=== PATIENT | female | born 1970 | race Caucasian/White ===

== ENCOUNTER 2020-01-25 14:27 | Outpatient (CLI) | payer OTHER, SELFPAY ==
--- NOTE | ~2020-01-25 | MM_ITS ---
EXAMINATION: MM screening michele BI w alayna HISTORY: Screening mammogram TECHNIQUE: Craniocaudal and mediolateral oblique 3-D tomosynthesis images were obtained and synthetic 2-D images were generated. CAD analysis was submitted and interpreted. COMPARISON: Comparison to multiple prior studies sequentially, with oldest reviewed study dated 10/09. BREAST PARENCHYMAL COMPOSITION: There are scattered areas of fibroglandular density. FINDINGS: There is no evidence of suspicious mass, calcification, or architectural distortion to sugg est malignancy in either breast. There has been no suspicious interval change. IMPRESSION: 1. No mammographic evidence of malignancy. 2. Recommend routine screening mammography in one year. BI-RADS Category 1: Negative Reviewed, dictated and finalized at location A.
== END 2020-01-25 14:28 | disposition home or self-care (01) ==
LOC: ANHIMG 14:35
PROVIDERS: PCP Family Medicine; Visit Provider Family Medicine
DX: Z12.31 Encounter for screening mammogram for malignant neoplasm of breast (principal)
CPT/HCPCS: 77063; 77067

== ENCOUNTER 2020-07-12 17:02 | Outpatient (CLI) | payer OTHER, SELFPAY ==
--- NOTE | ~2020-07-12 | XR_ITS ---
EXAMINATION: XR knee RT 3V DATE: 07/12/2020 17:22 INDICATION: Medial right knee pain TECHNIQUE: Anteroposterior, oblique and crosstable lateral views of the right knee were obtained COMPARISON: None. FINDINGS: Alignment is normal. No fracture. Joint spaces appear normal. Tiny marginal osteophyte at the upper pole of the patella consistent with at least minimal osteoarthritis. No joint effusion/layering lipoh emarthrosis. Soft tissues are unremarkable. IMPRESSION: 1. Minimal right patellofemoral osteoarthritis. Reviewed, dictated and finalized at location A.
== END 2020-07-12 17:03 | disposition home or self-care (01) ==
PROVIDERS: PCP Family Medicine; Visit Provider Family Medicine
DX: M25.569 Pain in unspecified knee (principal)
CPT/HCPCS: 73562

== ENCOUNTER 2020-09-08 07:06 | Outpatient (NON) | payer OTHER, SELFPAY ==
[2020-09-09 01:24] LABS: SARS-CoV-2 RNA PCR Negative
== END 2020-09-08 07:07 ==
LOC: ANHCOVIDDT 07:06
PROVIDERS: PCP Family Medicine; Visit Provider Family Medicine
DX: R68.89 Other general symptoms and signs (principal); Z20.828 Contact with and (suspected) exposure to other viral communicable diseases
CPT/HCPCS: 87635; C9803; U0003

== ENCOUNTER 2021-03-07 15:24 | Outpatient (CLI) | payer OTHER, SELFPAY ==
--- NOTE | ~2021-03-07 | MM_ITS ---
EXAMINATION: MM screening [facility] BI w alayna HISTORY: Screening mammogram TECHNIQUE: Craniocaudal and mediolateral oblique 3-D tomosynthesis images were obtained and synthetic 2-D images were generated. CAD analysis was submitted and interpreted. COMPARISON: 01/25/2020, 01/08/2019, 01/06/2018, 12/31/2017 BREAST PARENCHYMAL COMPOSITION: There are scattered areas of fibroglandular density. FINDINGS: There is no evidence of suspicious mass, calcification, or architectural distortion to sugg est malignancy in either breast. There has been no suspicious interval change. IMPRESSION: 1. No mammographic evidence of malignancy. 2. Recommend routine screening mammography in one year. BI-RADS Category 1: Negative Reviewed, dictated and finalized at location A.
== END 2021-03-07 15:25 | disposition home or self-care (01) ==
PROVIDERS: PCP Family Medicine; Visit Provider Physician Assistant
DX: Z12.31 Encounter for screening mammogram for malignant neoplasm of breast (principal)
CPT/HCPCS: 77063; 77067

== ENCOUNTER → 2021-09-18 10:59 | Outpatient (CLI) | payer OTHER, SELFPAY ==
--- NOTE | ~2021-09-18 | XR_ITS ---
EXAMINATION: XR shoulder RT min 2V DATE: 09/18/2021 11:17 INDICATION: Right shoulder pain. TECHNIQUE: 4 views of right shoulder were obtained. COMPARISON: None. FINDINGS: Bone alignment is normal. No fracture. Glenohumeral joint is normal. There is mild acromioc lavicular joint osteoarthritis. IMPRESSION: 1. Mild acromioclavicular joint osteoarthritis. Reviewed, dictated and finalized at location B. [employer]IE[employer]
== END ==
PROVIDERS: Visit Provider Physician Assistant
DX: M19.011 Primary osteoarthritis, right shoulder (principal)
CPT/HCPCS: 73030

== ENCOUNTER 2022-04-23 14:14 | Outpatient (CLI) | payer OTHER, SELFPAY ==
--- NOTE | ~2022-04-23 | MM_ITS ---
EXAMINATION: MM screening michele BI w alayna HISTORY: Screening TECHNIQUE: Craniocaudal and mediolateral oblique 3-D tomosynthesis images were obtained and synthetic 2-D images were generated. CAD analysis was submitted and interpreted. COMPARISON: . Comparison to multiple prior studies sequentially, with oldest reviewed study dated . BREAST PARENCHYMAL COMPOSITION: Breast composed of scattered areas of fibroglandular density FINDINGS: There is a new mass in the lower outer quadrant of the right breast the left breast is stab le without evidence for malignancy. IMPRESSION: 1. New right breast mass. 2. Additional mammographic views and possible breast ultrasound are recommended. BI-RADS Category 0: Incomplete: Needs additional imaging evaluation. Reviewed, dictated and finalized at location A. IMPRESSION: 1. New right breast mass. 2. Additional mammographic views and possible breast ultrasound are recommended . BI-RADS Category 0: Incomplete: Needs additional imaging evaluation.
== END 2022-04-23 14:15 | disposition home or self-care (01) ==
PROVIDERS: PCP Physician Assistant; Visit Provider Physician Assistant
DX: Z12.31 Encounter for screening mammogram for malignant neoplasm of breast (principal); R92.8 Other abnormal and inconclusive findings on diagnostic imaging of breast
CPT/HCPCS: 77063; 77067

== ENCOUNTER → 2022-05-06 14:15 | Outpatient (CLI) | payer OTHER, SELFPAY ==
--- NOTE | ~2022-05-06 | MMUS_ITS ---
EXAMINATION: MM diagnostic michele RT w alayna, US breast RT limited HISTORY: Right breast mass in the lower outer quadrant of right breast reported on 05/10/2022 screenin g mammogram examination TECHNIQUE: Additional 3-D tomosynthesis images of the right breast were performed and synthetic 2-D i mages were generated. CAD analysis was submitted and interpreted. High resolution upper outer and low er-outer quadrant right breast ultrasound was performed. COMPARISON: 05/20/2022 bilateral screening mammogram FINDINGS: MAMMOGRAPHIC FINDINGS: Approximately 6.5 x 8 mm low-density circumscribed mass is noted in the lower outer right breast at a pproximately 8:00 position. ULTRASOUND: 8:00 5 cm from nipple: Parallel circumscribed 4 x 7.7 mm hypoechoic lesion without suspicious shadowi ng, benign in appearance No suspicious mass or shadowing is detected elsewhere in the outer half of the right breast. IMPRESSION: 1. No mammographic evidence of malignancy 2. Routine mammographic screening is recommended. BI-RADS Category 2: Benign finding(s). Reviewed, dictated and finalized at location A. IMPRESSION: 1. No mammographic evidence of malignancy 2. Routine mammographic screening is recommended. BI-RADS Category 2: Benign finding(s).
== END ==
PROVIDERS: PCP Physician Assistant; Visit Provider Family Medicine
DX: R92.8 Other abnormal and inconclusive findings on diagnostic imaging of breast (principal)
CPT/HCPCS: 76642; 77061; 77065; G0279

== ENCOUNTER 2022-10-13 09:50 | Day surgery (SDC) | payer OTHER, SELFPAY ==
[2022-08-07 14:29] VITALS: BMI 27.9
[2022-09-30 12:43] VITALS: BMI 28.0
--- NOTE | 2022-10-10 13:06 | WPDANESEPPF ---
Anes - Initial Pre Proc Eval Procedure: Operation Date: 10/13/22 13:30 Proposed Procedures p Screening Colonoscopy - Donnell Dye MD Date/Time: 10/10/22 13:06 Surgeon: Donnell Dye MD Pre Op Diagnosis: Neoplasm Screening Patient Data Age: 52 Gender: F Height: 1.68 m Weight: 79 kg Allergies Allergy/AdvReac Type Severity Reaction Status Date / Time shellfish derived Allergy Unknown HIVES, Verified 10/13/22 11:33 SWELLING sulfamethizole Allergy Unknown Skin Verified 10/13/22 11:33 Reaction Home Medications Medication Instructions Recorded Confirmed Type rizatriptan 10 mg tablet See Rx Instructions .Route 09/30/21 09/30/22 Rx .COMPLEX #30 tabs escitalopram oxalate 20 mg tablet See Rx Instructions .Route 12/09/21 09/30/22 Rx .COMPLEX #90 tabs betamethasone valerate 0.1 % 1 applic topical DAILY PRN 06/16/22 10/13/22 Rx topical cream allergic reaction #45 grams cholecalciferol (vitamin D3) 50 50 mcg PO DAILY 06/16/22 09/30/22 History mcg (2,000 unit) capsule magnesium 250 mg tablet 250 mg PO DAILY 06/16/22 09/30/22 History multivitamin 1 tablet PO DAILY 06/16/22 09/30/22 History phytonadione (vitamin K1) 5 mg 5 mg PO DAILY 06/16/22 09/30/22 History tablet ubidecarenone-omega 3-vit E 25 1 cap PO DAILY 06/16/22 09/30/22 History mg-150 (90-60) mg-200 unit capsule (Co E-35-Hjrgfii E-Fish Oil) vitamin B complex (B 1 tablet PO DAILY 06/16/22 09/30/22 History Complex-Vitamin B12 tablet) topiramate 50 mg tablet (Topamax) 50 mg PO BID #180 tabs 07/21/22 09/30/22 Rx methylprednisolone 4 mg tablets in See Rx Instructions PO PER PKG DIR 09/30/22 09/30/22 Rx a dose pack (Medrol (David)) #21 ea rimegepant 75 mg disintegrating 75 mg PO ONCE PRN migraine 09/30/22 09/30/22 Rx tablet (Nurtec ODT) headache #30 tabs Patient hx anesthesia problems: none Family hx anesthesia problems: none Results Review: All pre-operative results and documents have been reviewed as part of the pre-operative evaluation. [facility] Past Medical History Medical History (Updated 10/13/22 @ 12:03 by Wallace Bright DO) Adhesive capsulitis of right shoulder Migraine Surgical History Surgical History (Updated 06/16/22 @ 10:28 by Hugh Edgar MA) H/O shoulder surgery RIGHT SHOULDER 12/10 Family History Family History Father Hypertension Mother Family history of malignant neoplasm Lung cancer Grandparent Carcinoma of colon Social History Social History Smoking status: Never smoker Alcohol intake: current Drinks per week: 4 Alcohol use details: beer Substance use: never Substance use type: does not use Living arrangements: with family Occupation/Education: occupation Additional occupation/education comments: teacher Gender identity (if verbalized by the patient): Female Spiritual care concerns: No Anes - Eval Final PreProcedure Day of Procedure 10/10/22 13:06 Patient weight: overweight Heart: regular rate and rhythm Lungs: clear to auscultation Airway: Mallampati scale class II Neurological: alert and oriented Last oral intake: >/= 8 hours ASA classification: II Emergent: no Anesthetic plan: proceed Anesthesia type and monitoring: general GIVS and standard monitoring Results Review: All pre-operative results and documents have been reviewed as part of the pre-operative evaluation. Informed Consent: The patient's anesthetic plan and its attendant risks and benefits were discussed with the patient/family/POA. Questions were solicited and answers provided to the satisfaction of the patient/family/POA.
[2022-10-13 11:15] VITALS: BP 120/81; PULSE 72; RESP 18; TEMP 36.8; O2SAT 100
[2022-10-13] MEDS: LACTATED RINGERS 1,000 ML 150 ML IV CONT (11:37)
--- NOTE | 2022-10-13 12:04 | PM.HPGS ---
History of Present Illness History of Present Illness Consent: Risks, benefits, and alternatives have been discussed and questions answered. Patient agrees to proceed with procedure. Chief complaint: Neoplasm Screening Narrative: Ginette Romeo is a 52 year old female here for screening colonoscopy, had one over 10 years ago because anemia. Review of Systems Constitutional: Constitutional: Denies headache(s) and Denies weakness Eyes: Eyes: Denies blurry vision ENT: Reports Normal hearing present, Denies headache(s) and Denies neck pain Cardiovascular: Cardiovascular: Denies chest pain and Denies dyspnea Respiratory: Respiratory: Denies dyspnea Gastrointestinal: Gastrointestinal: Reports no additional gastrointestinal complaints Genitourinary: Genitourinary: Denies dysuria Musculoskeletal: Musculoskeletal: Denies neck pain Integumentary/Breasts: Skin/Breast: Denies dry skin Neurologic: Reports Normal hearing present, Denies headache(s) and Denies weakness Psychiatric: Psychiatric: Denies anxiety Endocrine: Endocrine: Denies change in body appearance Hematologic/Lymphatic: Hematologic/Lymphatic: Denies easy bleeding Allergic/Immunologic: Allergic/Immunologic: Denies urticaria PMFSH Past Medical History Medical History (Updated 10/13/22 @ 12:05 by Donnell Dye MD) Adhesive capsulitis of right shoulder Colon cancer screening Migraine Surgical History Surgical History (Updated 06/16/22 @ 10:28 by Hugh Edgar MA) H/O shoulder surgery RIGHT SHOULDER 12/10 Family History Family History Father Hypertension Mother Family history of malignant neoplasm Lung cancer Grandparent Carcinoma of colon Social History Social History Smoking status: Never smoker Alcohol intake: current Drinks per week: 4 Alcohol use details: beer Substance use: never Substance use type: does not use Living arrangements: with family Occupation/Education: occupation Additional occupation/education comments: teacher Gender identity (if verbalized by the patient): Female Spiritual care concerns: No Meds Home Medications and Allergies Home Medications Medication Instructions Recorded Confirmed Type rizatriptan 10 mg tablet See Rx Instructions .Route 09/30/21 09/30/22 Rx .COMPLEX #30 tabs escitalopram oxalate 20 mg tablet See Rx Instructions .Route 12/09/21 09/30/22 Rx .COMPLEX #90 tabs betamethasone valerate 0.1 % 1 applic topical DAILY PRN 06/16/22 10/13/22 Rx topical cream allergic reaction #45 grams cholecalciferol (vitamin D3) 50 50 mcg PO DAILY 06/16/22 09/30/22 History mcg (2,000 unit) capsule magnesium 250 mg tablet 250 mg PO DAILY 06/16/22 09/30/22 History multivitamin 1 tablet PO DAILY 06/16/22 09/30/22 History phytonadione (vitamin K1) 5 mg 5 mg PO DAILY 06/16/22 09/30/22 History tablet ubidecarenone-omega 3-vit E 25 1 cap PO DAILY 06/16/22 09/30/22 History mg-150 (90-60) mg-200 unit capsule (Co L-70-Nyhaoth E-Fish Oil) vitamin B complex (B 1 tablet PO DAILY 06/16/22 09/30/22 History Complex-Vitamin B12 tablet) topiramate 50 mg tablet (Topamax) 50 mg PO BID #180 tabs 07/21/22 09/30/22 Rx methylprednisolone 4 mg tablets in See Rx Instructions PO PER PKG DIR 09/30/22 09/30/22 Rx a dose pack (Medrol (David)) #21 ea rimegepant 75 mg disintegrating 75 mg PO ONCE PRN migraine 09/30/22 09/30/22 Rx tablet (Nurtec ODT) headache #30 tabs Allergies Allergy/AdvReac Type Severity Reaction Status Date / Time shellfish derived Allergy Unknown HIVES, Verified 10/13/22 11:33 SWELLING sulfamethizole Allergy Unknown Skin Verified 10/13/22 11:33 Reaction Vital Signs Vital Signs - 24 hr 10/13/22 11:15 Temperature 98.2 F Pulse Rate 72 Respiratory Rate 18 Blood Pressure 120/81 Pulse Oximetry 100 Oxygen [employer]
[2022-10-13 12:24] VITALS: BP 93/64; PULSE 59; RESP 16; O2SAT 96
[2022-10-13 12:34] VITALS: BP 100/67; PULSE 61; RESP 18; O2SAT 100
[2022-10-13 12:44] VITALS: BP 139/78; PULSE 58; RESP 20; O2SAT 100
--- NOTE | 2022-10-13 12:54 | WPDANESPN ---
Anes - Prog Note Post-Op Date/Time: 10/13/22 12:54 Cardiovascular status: normal Respiratory status: normal Airway patency: baseline Mental status: baseline Post-Op hydration status: normal Vital Signs: Last Vital Signs Temp 36.8 C 10/13/22 11:15 Pulse 58 L 10/13/22 12:44 Resp 20 10/13/22 12:44 BP 139/78 10/13/22 12:44 Pulse Ox 100 10/13/22 12:44 O2 Del Method Room Air 10/13/22 12:44 Pain Score (VAS): 0 I/O: Intake & Output 10/12/22 10/13/22 10/13/22 23:59 07:59 15:59 Intake Total 630 Balance 630 Post-procedural complaints: none Patient Feedback: Patient satisfied with anesthetic care. Other Findings: Patient vital signs back to baseline. Patient denies nausea and vomiting. Patient's pain under control. Patient OK for discharge.
== END 2022-10-13 13:00 | disposition home or self-care (01) ==
PROVIDERS: PCP Physician Assistant; Visit Provider Internal Medicine Gastroenterology
PROC: 0DJD8ZZ Inspection of Lower Intestinal Tract, Via Natural or Artificial Opening Endoscopic (ICD-10-PCS; CPT 45378; principal; 2022-10-13 13:30)
DX: Z12.11 Encounter for screening for malignant neoplasm of colon (principal)
CPT/HCPCS: 45378

== ENCOUNTER 2022-12-12 16:26 | Emergency (ER) | payer OTHER, SELFPAY ==
--- NOTE | 2022-12-12 16:46 | ED.URI ---
HPI - URI/Sore Throat General Chief Complaint: Upper Respiratory Infection Stated Complaint: strep test Time Seen by Provider: 12/12/22 16:49 History of Present Illness HPI Narrative: 52y/o female presented for c/o sore throat since yesterday and headache today. Also reports sinus congestion and bilateral ear pressure for about 1 week. Denies sob, wheezing, n/v/d/f/c. Taking Mucinex occasionally. Exposed to strep. Took Negative covid test at home today. Related Data Home Medications Medication Instructions Recorded Confirmed cholecalciferol (vitamin D3) 50 50 mcg PO DAILY 06/16/22 12/12/22 mcg (2,000 unit) capsule magnesium 250 mg tablet 250 mg PO DAILY 06/16/22 12/12/22 multivitamin 1 tablet PO DAILY 06/16/22 12/12/22 phytonadione (vitamin K1) 5 mg 5 mg PO DAILY 06/16/22 12/12/22 tablet ubidecarenone-omega 3-vit E 25 1 cap PO DAILY 06/16/22 12/12/22 mg-150 (90-60) mg-200 unit capsule (Co K-79-Ornmusw E-Fish Oil) vitamin B complex (B 1 tablet PO DAILY 06/16/22 12/12/22 Complex-Vitamin B12 tablet) Allergies Allergy/AdvReac Type Severity Reaction Status Date / Time shellfish derived Allergy Unknown HIVES, Verified 10/13/22 11:33 SWELLING sulfamethizole Allergy Unknown Skin Verified 10/13/22 11:33 Reaction Review of Systems Review of Systems: CONSTITUTIONAL: Denies body aches, fever, chills, or sweats. EYES: Denies visual changes, redness, or discharge. ENT: reports rhinorrhea, congestion, sore throat, otalgia. CARDIOVASCULAR: Denies chest pain, palpitations, or edema. RESPIRATORY: Denies dyspnea. GASTROINTESTINAL: Denies abdominal pain, nausea, vomiting, or diarrhea. SKIN: Denies rash, itching, or wounds. MUSCULOSKELETAL: Denies back pain, joint pain, or myalgia. NEUROLOGIC: Reports headache PMFSH Past Medical History Medical History Adhesive capsulitis of right shoulder Colon cancer screening Migraine Surgical History Surgical History H/O shoulder surgery RIGHT SHOULDER 12/10 Family History Family History Father Hypertension Mother Family history of malignant neoplasm Lung cancer Grandparent Carcinoma of colon Social History Social History Smoking status: Never smoker Alcohol intake: current Drinks per week: 4 Alcohol use details: beer Substance use: never Substance use type: does not use Living arrangements: with family Occupation/Education: occupation Additional occupation/education comments: teacher Gender identity (if verbalized by the patient): Female Spiritual care concerns: No Exam Narrative: GENERAL: well-appearing EYES: conjunctivae clear ENT: Mucous membranes moist. TM pearly marshall with normal light reflex bilaterally; no tragal tenderness. Oropharynx not erythematous, Tonsils not enlarged. No drooling, no hoarseness, no trismus, uvula midline. No tripod positioning, hot potato voice, or soft palate swelling. NECK: Supple. No lymphadenopathy CHEST: Clear to auscultation, breath sounds equal. No respiratory distress, speaks in full sentences. HEART: Regular rate and rhythm. No murmur heard. SKIN: Warm, dry, no rash. NEURO: Alert and oriented x3. Course Course Emergency Course: Patient is aware of diagnosis, understands and agrees to treatment plan. Anticipatory guidance given. Patient agrees to follow-up as directed and is aware of reasons to seek care at the emergency department. Portions of this record may have been created with voice recognition software Level of Care: Express Care Visit MDM - URI/Sore Throat MDM Narrative Medical decision making narrative: strep result reviewed with pt. Advise supportive treatments. Patient is appropriate for outpatient treatment and follow-up. Differe
[2022-12-12 16:47] VITALS: BP 129/88; PULSE 62; RESP 16; TEMP 36.1; O2SAT 100
== END 2022-12-12 17:03 | disposition home or self-care (01) ==
PROVIDERS: Emergency Provider Nurse Practitioner Family
DX: J06.9 Acute upper respiratory infection, unspecified (principal)
CPT/HCPCS: 87081; 87880; 99213; G0463

== ENCOUNTER 2023-03-02 09:17 | Outpatient (CLI) | payer OTHER, SELFPAY ==
[2023-03-02 10:55] LABS: Kit Draw Collected
== END 2023-03-02 09:18 | disposition home or self-care (01) ==
LOC: ANHGOSHLAB 09:18
PROVIDERS: Visit Provider Physician Assistant
DX: E78.5 Hyperlipidemia, unspecified (principal)
CPT/HCPCS: 36415

== ENCOUNTER → 2023-05-30 10:41 | Outpatient (CLI) | payer OTHER, SELFPAY ==
--- NOTE | ~2023-05-30 | MM_ITS ---
EXAMINATION: MM screening michele BI w alayna HISTORY: Screening mammogram TECHNIQUE: Craniocaudal and mediolateral oblique 3-D tomosynthesis images were obtained and synthetic 2-D images were generated. CAD analysis was submitted and interpreted. COMPARISON: 05/06/2022 diagnostic right mammogram and limited right breast ultrasound 04/23/2022, 03/07/2021, 01/25/2020 bilateral screening mammogram examinations BREAST PARENCHYMAL COMPOSITION: There are scattered areas of fibroglandular density. FINDINGS: There is no evidence of suspicious mass, calcification, or architectural distortion to sugg est malignancy in either breast. There has been no suspicious interval change. IMPRESSION: 1. No mammographic evidence of malignancy. 2. Recommend routine screening mammography in one year. BI-RADS Category 1: Negative Reviewed, dictated and finalized at location A.
--- NOTE | ~2023-05-30 | DEXA_ITS ---
Bone Density Report Name: CHRISTOPHER FIERRO Age: 53 Sex: Female Ethnicity: White Date of : 1970 Indication: postmenopausal; screening for osteoporosis; height loss; Referring Provider: MANDO URENA Study: Bone densitometry was performed. Exam Date: May 30, 2023 Accession number: [id number] Bone Density: Region BMD T-score Z-score Classification AP Spine (L1-L4) 0.896 -1.4 -0.5 Osteopenia Femoral Neck (Left) 0.707 -1.3 -0.4 Osteopenia Total Hip (Left) 0.924 -0.1 0.4 Normal Femoral Neck (Right) 0.669 -1.6 -0.8 Osteopenia Total Hip (Right) 0.882 -0.5 0.1 Normal Total Hip Mean 0.903 -0.3 0.3 Normal World Health Organization criteria for BMD impression classify patients as: Normal (T-score at or above -1.0), Osteopenia (T-score between -1.0 and -2.5), or Osteoporosis (T-score at or below -2.5). 10-year Fracture Risk(1): Major Osteoporotic Fracture 5.5% Hip Fracture 0.5% Reported Risk Factors: [place] (), Neck BMD=0.669, BMI=28.9 (1) FRAX(R) Version 3.08. Fracture probability calculated for an untreated patient. Fracture probability may be lower if the patient has received treatment. Clinical Information Provided by Patient: Has used the following medications: Vitamin D, Calcium Patient maximum height was 66.2 Menopause Age: 49 Drinks caffeinated beverages Onset of menses at age 14 Number of children 2 Impression: The patient has low bone mass, based on the Right Femoral Neck T-score. The patient has an estimated ten-year risk of hip fracture of 0.5% and an estimated ten-year risk of major fracture of 5.5%, based on the WHO FRAX algorithm. Discussion: BONE DENSITY IS LOW AT ONE OR MORE SKELETAL SITES. This patient's lowest T-score is low at one or more skeletal sites. It meets the World Health Organization's (WHO) criteria for ?low bone mass? (T-score between -1.0 and -2.5). The patient's 10-year risk of fracture as calculated by FRAX is less than the threshold where pharmacological therapy is recommended by the National Osteoporosis Foundation (NOF). However, all treatment decisions require clinical judgment and consideration of individual patient factors, including patient preferences, comorbidities, previous drug use, risk factors not captured in the FRAX model (e.g., frailty, falls, vitamin D deficiency, increased bone turnover, interval significant decline in bone density) and possible under or overestimation of fracture risk by FRAX. The patient should follow a healthful lifestyle (good nutrition with adequate calcium and vitamin D, and appropriate weight-bearing exercise). Follow-Up: Consider repeating this study in 2 to 3 years to reassess this patient's status, or sooner if there is some new clinical indication. Reported by: WHIT on 05/30/2023 11:10:00 AM. _
== END ==
PROVIDERS: PCP Physician Assistant; Visit Provider Physician Assistant
DX: Z12.31 Encounter for screening mammogram for malignant neoplasm of breast (principal); Z78.0 Asymptomatic menopausal state; M85.88 Other specified disorders of bone density and structure, other site; M85.852 Other specified disorders of bone density and structure, left thigh; M85.851 Other specified disorders of bone density and structure, right thigh
CPT/HCPCS: 77063; 77067; 77080

== ENCOUNTER 2024-02-16 08:20 | Outpatient (CLI) | payer OTHER, SELFPAY ==
[2024-02-16 11:23] LABS: Alanine Aminotransferase 17 U/L (6-35); Albumin Level 4.5 g/dL (3.5-5.1); Alkaline Phosphatase 74 U/L (38-126); Anion Gap 4 mmol/L (4-12); Aspartate Amino Transferase 55 U/L (14-36); Bilirubin,Total 0.6 mg/dL (0.2-1.3); Blood Urea Nitrogen 14 mg/dL (7-17); Calcium 9.1 mg/dL (8.4-10.2); Carbon Dioxide 28 mmol/L (22-30); Chloride 107 mmol/L (98-107); Cholesterol 221 mg/dL (0-200); Estimated Glomerular Filt Rate > 60; Glucose 89 mg/dL (65-110); HDL Direct 71 mg/dL; Sodium 139 mmol/L (137-145); Triglycerides 134 mg/dL (<150)
[2024-02-16 11:33] LABS: LDL Cholesterol Direct 117 mg/dL
== END 2024-02-16 08:21 | disposition home or self-care (01) ==
LOC: ANHGOSHLAB 08:21
PROVIDERS: PCP Family Medicine; Visit Provider Family Medicine
DX: E78.5 Hyperlipidemia, unspecified (principal); Z13.228 Encounter for screening for other metabolic disorders
CPT/HCPCS: 36415; 80053; 80061

== ENCOUNTER 2024-02-18 10:33 | Outpatient (CLI) | payer OTHER, SELFPAY ==
--- NOTE | ~2024-02-18 | XR_ITS ---
Left Shoulder Technique: AP and scapular Y views were obtained. Clinical History: Pain Findings: No fracture or dislocation is seen. Osseous alignment is anatomic. The glenohumeral and acr omioclavicular joint spaces are preserved. Soft tissues are unremarkable. Impression: Unremarkable left shoulder radiographs. Reviewed, dictated and finalized at [facility]. Impression: Unremarkable left shoulder radiographs.
== END 2024-02-18 10:34 ==
LOC: GOSHIMG 10:34
PROVIDERS: PCP Family Medicine; Visit Provider Family Medicine
DX: M25.512 Pain in left shoulder (principal)
CPT/HCPCS: 73030

== ENCOUNTER 2024-08-25 16:17 | Outpatient (CLI) | payer OTHER, SELFPAY ==
--- NOTE | ~2024-08-25 | MM_ITS ---
EXAMINATION: MM screening [facility] BI w alayna HISTORY: Screening TECHNIQUE: Craniocaudal and mediolateral oblique 3-D tomosynthesis images were obtained and synthetic 2-D images were generated. CAD analysis was submitted and interpreted. COMPARISON: Comparison to multiple prior studies sequentially, with oldest reviewed study dated 01/08. BREAST PARENCHYMAL COMPOSITION: Not dense: There are scattered areas of fibroglandular density. FINDINGS: There is no evidence of suspicious mass, calcification, or architectural distortion to sugg est malignancy in either breast. There has been no suspicious interval change. IMPRESSION: 1. No mammographic evidence of malignancy. 2. Recommend routine screening mammography in one year. BI-RADS Category 1: Negative Reviewed, dictated and finalized at location B. [employer]
== END 2024-08-25 16:18 | disposition home or self-care (01) ==
LOC: ANHIMG 16:17
PROVIDERS: PCP Family Medicine; Visit Provider Family Medicine
DX: Z12.31 Encounter for screening mammogram for malignant neoplasm of breast (principal)
CPT/HCPCS: 77063; 77067

== ENCOUNTER 2025-01-09 10:47 | Outpatient (CLI) | payer OTHER, SELFPAY | END 2025-01-09 10:48 | disposition home or self-care (01) | LOC: GOSHIMG 10:47 | PROVIDERS: PCP Clinical Nurse Specialist; Visit Provider Clinical Nurse Specialist | DX: M25.561 Pain in right knee (principal) | CPT/HCPCS: 73564 ==

== ENCOUNTER 2025-01-14 11:12 | Outpatient (CLI) | payer OTHER, SELFPAY ==
--- NOTE | ~2025-01-14 | US_ITS ---
RIGHT LOWER EXTREMITY VENOUS ULTRASOUND Ordering provider: [facility] Shelton-C History: . M25.469 - Effusion, unspecified knee . Comparison: None. FINDINGS: --COMMON FEMORAL: Patent and free of thrombus. Normal compressibility, phasic flow and augmentation. --PROXIMAL SUPERFICIAL FEMORAL: Patent and free of thrombus. Normal compressibility, phasic flow and augmentation. --DISTAL SUPERFICIAL FEMORAL: Patent and free of thrombus. Normal compressibility, phasic flow and au gmentation. --POPLITEAL: Patent and free of thrombus. Normal compressibility, phasic flow and augmentation. --POSTERIOR TIBIAL: Patent and free of thrombus. Normal compressibility, phasic flow and augmentation . IMPRESSION: Negative right lower extremity venous US. No deep vein thrombosis. Reviewed, dictated and finalized at location A.
== END 2025-01-14 11:13 | disposition home or self-care (01) ==
PROVIDERS: PCP Clinical Nurse Specialist; Visit Provider Clinical Nurse Specialist
DX: M25.461 Effusion, right knee (principal); Z78.9 Other specified health status
CPT/HCPCS: 93971

== ENCOUNTER 2025-07-26 09:22 | Outpatient (NON) | payer OTHER, SELFPAY ==
--- OUTSIDE RECORDS SUMMARY | 2025-07-26 10:04 | XMS_ITS | Clinical Summary ---
Author Organization [facility] Address [address] [place] [address] Care Team Providers Care Anesthesia Assistant Name Role Phone Ezio Ohara MD Primary Care Provider [phone] Source Comments [facility],non-owned Affiliates and Associated Physician Practices is amultiple site organization consisting of ambulatory clinics and hospital sitesin [place], [place], [place] and [place]. This disclosure is being madepursuant to the Care Everywhere program and may not contain all information available regarding this patient. Last updated 18.[employer] [facility] Allergies Active Allergy Reactions Criticality Noted Date Comments Shellfish Allergy Urticaria Medium 11/09/2016 Medications * Be aware that medications may not be up to date on this document. Alwaysverify current medications with the patient. Topiramate (TOPAMAX PO) Active Rizatriptan Benzoate (MAXALT PO) Active Escitalopram Oxalate (LEXAPRO PO) Active diphenhydramine 12.5mg/ml, 30ml,; visc lidocaine 2%, 30ml,; maalox, 30ml, (MIRACLE MOUTHWASH) SUSPIndications :Acute pharyngitis, unspecified etiology 1:1:1 solution of viscous lidocaine 2%, Maalox, diphenhydramine 12.5mg/5ml elixir 90 mL 02/03/20 17 Active Dextromethorpha n-Guaifenesin (MUCINEX DM PO) Acti ve amoxicillin-cla vulanate (AUGMENTIN) 875-125 MG tablet Take 875 mg by mouth 2 times daily with morning and evening meal Active Fluticasone Propionate (FLONASE NA) Active benzonatate (TESSALON) 200 MG capsule Take 1 Cap by mouth 3 times daily as needed for Cough 30 Cap 02/20/20 17 Active Family History Medical History Relation Name Comments Leukemia Mother Relation Name Status Comments Father Mother Social History Tobacco Use Types Packs/Day Years Used Date Smoking Tobacco: Never Comments No Sex and Gender Information Value Date Recorded Sex Assigned at Not on file Legal Sex Female 7:48 AM NURSE Gender Identity Not on file Sexual Orientation Not on file Last Filed Vital Signs Vital Sign Reading Time Taken Comments Blood Pressure 118/88 02/19/2017 4:47 PM CDT Pulse 84 02/19/2017 4:47 PM CDT Temperature 36.9 C (98.4 F) 02/19/2017 4:47 PM CDT Respiratory Rate 16 02/19/2017 4:47 PM CDT Oxygen Saturation 99% 02/19/2017 4:47 PM CDT Inhaled Oxygen Concentration - - Weight 70.3 kg (155 lb) 02/19/2017 4:47 PM CDT Height 167.6 cm (5' 6) 02/19/2017 4:47 PM CDT Body Mass Index 25.02 02/19/2017 4:47 PM CDT Plan of Treatment Health Maintenance Due Date Last Done Comments COLOGUARD (AGES 45-75) - COL ON CA SCREENING 1971 COLON MONITORING 1971 COLONOSCOPY - COLON CA SCREENING 1971 CT COLONOGRAPHY - COLON CA SCREENING 1971 Colorectal Cancer Screening 1971 FIT - COLON CA SCREENING 1971 FLEX SIG - COLON CA SCREENING 1971 LIPID TESTING 1971 MAMMOGRAM 1971 HIV SCREENING 1986 HEPATITIS C SCREENING 04/30/1989 DTAP/TDAP/TD VACCINES (1 - Tdap) 1990 HEPATITIS B VACCINE (1 of 3 - 19+ 3-dose series) 1990 PNEUMOCOCCAL VACCINE 50+ (1 of 1 - PCV) 2021 ZOSTER VACCINE (1 of 2) 2021 DEPRESSION SCREENING 09/21/2024 COVID-19 VACCINE (1 - 2023-2 5 season) 2025 INFLUENZA VACCINE (#1) 2025 HIB VACCINE Aged Out No longer eligi ble based on patient's age to complete this topic HPV VACCINE Aged Out No longer eligi ble based on patient's age to complete this topic MENINGOCOCCAL (Group B) VACC INE SHARED DECISION-MAKING Aged Out No longer eligibl e based on patient's age to complete this topic MENINGOCOCCAL GROUPS A/C/Y/W VACCINE Aged Out No longer eligible b ased on patient's age to complete this topic Insurance [facility] Care Teams Anesthesia Assistant Relationship Specialty Start Date End Date Ezio Ohara MD [address] [place] [id number] PCP - General Family Medicine 11/09/16
--- OUTSIDE RECORDS SUMMARY | 2025-07-26 10:04 | XMS_ITS | Clinical Summary ---
Author Organization [facility] Address [address] [place] [address] Care Team Providers Care Network Solutions Architect Name Role Phone Bryant Mercado DO Primary Care Provider Allergies Active Allergy Reactions Criticality Noted Date Comments Shellfish Containing Products Anaphylaxis,Hives,Itching, Rash,Swelling High 04/27/2024 Medications topiramate (TOPAMAX) 50 mg tabletIndicatio ns:Migraine Prevention Take 1 tablet (50 mg total) by mouth nightly 2 Active Nurtec ODT tablet,disinteg ratingIndicatio ns:Migraine Take 1 tablet (75 mg total) by mouth as needed 3 Active escitalopram (LEXAPRO) 20 mg tabletIndicatio ns:Anxiety with Depression Take 1 tablet (20 mg total) by mouth nightly 1 Active cholecalciferol (VITAMIN D-3) 25 mcg (1,000 unit) tabletIndicatio ns:Vitamin D Deficiency Take 1 tablet (1,000 Units total) by mouth optoelectronic technician before breakfast Active cyanocobalamin (Vitamin B-12) 1,000 mcg tabletIndicatio ns:Prevention of Vitamin B12 Deficiency Take 1 tablet (1,000 mcg total) by mouth optoelectronic technician before breakfast Active calcium acetate,phospha t bind, (PHOSLO) 667 mg tabletIndicatio ns:hypocalcemia Take 1 tablet (667 mg total) by mouth optoelectronic technician before breakfast Active glucosamine-cho ndroitin 500-400 mg capsuleIndicati ons:supplement Take 1 capsule by mouth optoelectronic technician before breakfast Active multivitamin with minerals tabletIndicatio ns:Mineral Deficiency Prevention,Kathe min Deficiency Prevention Take 1 tablet by mouth optoelectronic technician before breakfast Active docusate sodium (COLACE) 100 mg capsuleIndicati ons:constipatio n Take 1 capsule (100 mg total) by mouth 2 (two) times a day 30 capsule 4 Active oxyCODONE (ROXICODONE) 5 mg immediate release tabletIndicatio ns:Pain TAKE 1 TABLETS EVERY 4-6 HOURS NEEDED FOR PAIN 40 tablet 4 Active Active Problems Problem Noted Date Diagnosed Date Adhesive capsulitis of left shoulder 04/27/2024 Anxiety 08/03/2009 Atypical migraine 05/03/2009 Surgical History Surgery Date Site/Laterality Comments SHOULDER SURGERY 09/21/2021 - 09/20/2022 Right Medical History Medical History Date Comments Anxiety Migraine Family History Medical History Relation Name Comments Hypertension Other 1 Hypertension - dad (Added by TW Conv) Cancer Other 2 Reported A Hist ory Of Cancer - mom with lymphocytic leukemia (Added by TW Conv) Colon cancer Other 3 Malignant Neopl asm, Colon - paternal grandparents (Added by TW Conv) Migraines Other 4 Common Migraine (Without Aura) - son and sister (Added by TW Conv) Anesthesia problems Neg Hx Relation Name Status Comments Other 1 Other 2 Other 3 Other 4 Social History Tobacco Use Types Packs/Day Years Used Date Smoking Tobacco: Never Smokeless Tobacco: Never Tobacco Cessation:Counseling Given: Not Answered AUDIT-C Answer Date Recorded Q1: How often do you have a drink containing alc ohol? 2-3 times a week 06/27/2024 Q2: How many drinks containi ng alcohol do you have on a typical day when you are drinking? 1 or 2 06/27/2024 Q3: How often do you have si x or more drinks on one occasion? Never 06/27/2024 Personal Safety Answer Date Recorded Have you ever been in or are you currently in a harmful physical or emotional relationship or is someone making you feel afraid or unsafe? Denies 06/27/2024 Comments No Sex and Gender Information Value Date Recorded Sex Assigned at Not on file Legal Sex Female 8:27 AM LINT CLEANER Gender Identity Female 09/29/2024 8:06 AM LINT CLEANER Sexual Orientation Not on file Last Filed Vital Signs Vital Sign Reading Time Taken Comments Blood Pressure 146/82 06/27/2024 9:25 AM CDT Pulse 64 06/27/2024 9:25 AM CDT Temperature 36.5 C (97.7 F) 06/27/2024 9:25 AM CDT Respiratory Rate 13 06/27/2024 9:25 AM CDT Oxygen Saturation 95% 06/27/2024 9:25 AM CDT Inhaled Oxygen Concentration - - Weight 79.4 kg (175 lb 1.6 oz) 06/27/2024 6:15 A M CDT Height 167.6 cm (5' 6) 06/27/2024 6:15 AM CDT Body Mass Index 28.26 06/27/2024 6:15 AM CDT Plan of Treatment Health Maintenance Due Date Last Done Comments Breast Cancer Screening-Mammogram 1971 Cervical Cancer Screening 1971 Colon Cancer Screening-Colonoscopy 1971 Depression Screening 1971 Hepatitis C Screening 1971 DTaP/Tdap/Td Vaccine (1 - Tdap) 1982 Hepatitis B Screening 1989 Regular Well Visit/Exam 18-64 1989 Covid-19 Vaccine ( season) 2025 07/10/2023, 05/31/2022, 07/25/2021, Additional history exists Influenza Vaccine (#1) 2025 , 05/31/2022, 06/21/2018 Zoster Vaccine Completed 07/10/2023, 04/30/2023 Pneumococcal vaccine <65 Aged Out No longer eligible based on patient's age to complete this topic Insurance [facility] Address: [address] [address] [place] [address] [facility] Address: [facility] [address] [place] [address] Care Teams Network Solutions Architect Relationship Specialty Start Date End Date Bryant Mercado DO PCP - General Internal Medicine 10/04/24
--- OUTSIDE RECORDS SUMMARY | 2025-07-26 10:04 | XMS_ITS | Clinical Summary ---
Author Organization [facility] Address [address] Pope: Epic Prelude ADT [place] [address] Care Team Providers Care Shucker Name Role Phone Unavailable Primary Care Provider Unavailabl e Medications betamethasone valerate (VALISONE) 0.1 % Cream APPLY TO THE AFFECTED AREA(S) DAILY NEEDED FOR ALLERGIC REACTION 45 Gram 06/16/2022 3:53 PM CDT 2 Active methylPREDNISo lone (MEDROL DOSPACK) 4 mg Tablets, Dose Pack Take as directed on package. 21 Each 09/30/2022 4:08 PM MACHINE SHOP LEAD MAN 3 Active rimegepant (Nurtec ODT) 75 mg Tablet, Rapid Dissolve DISSOLVE 1 TABLET BY MOUTH A SINGLE DOSE NEEDED FOR MIGRAINE HEADACHE. DO NOT TAKE MORE THAN 1 TABLET IN A 24 HOUR PERIOD. 30 Tablet 1 10/02/2022 4:32 PM MACHINE SHOP LEAD MAN 3 Active rizatriptan (MAXALT) 10 mg Tablet TAKE 1 TABLET AT ONSET OF HEADACHE, IF NO RELIEF MAY REPEAT 1 TABLET IN 2 HOURS. MAXIMUM 3 TABLETS PER DAY (24 HOURS). 30 Tablet 8 02/14/2023 11:53 AM CDT 3 Active rimegepant (Nurtec ODT) 75 mg Tablet, Rapid Dissolve Place 1 Tablet (75 mg) on tongue and let dissolve 1 time daily as needed for migraine. Do not take more than 1 tablet in a 24 hour period. 30 Tablet 1 01/29/2024 4:42 PM CDT 3 Active benzonatate (TESSALON) 200 mg capsule Take one capsule (200 mg) orally three times a day as needed for cough 30 Capsule 06/16/2023 4:41 PM CDT 3 Active rizatriptan (MAXALT) 10 mg Tablet TAKE 1 TABLET AT ONSET OF HEADACHE, IF NO RELIEF MAY REPEAT 1 TABLET IN 2 HOURS, MAXIMUM 3 TABLETS PER DAY (24 HOURS) 30 Tablet 8 09/04/2023 4:31 PM MACHINE SHOP LEAD MAN 3 Active polymyxin B sulf-trimethop rim (POLYTRIM) 10,000 unit- 1 mg/mL solution ADMINISTER 1 DROP IN EACH EYE EVERY 3 HOURS FOR 7 DAYS WHILE AWAKE. DO NOT EXCEED 6 DOSES IN 24 HOURS. 10 mL 11/24/2023 9:30 AM MACHINE SHOP LEAD MAN 4 Active betamethasone valerate (VALISONE) 0.1 % Cream APPLY TO AFFECTED AREA DAILY NEEDED FOR ALLERGIC REACTION. 45 Gram 02/20/2024 11:40 AM CDT 4 Active rimegepant (Nurtec ODT) 75 mg Tablet, Rapid Dissolve Take 1 tablet by mouth once as needed for migraine headache; as a single dose. Do not take more than 1 tab in a 24 hour period. 30 Tablet 1 06/21/2024 4:43 PM CDT 4 Active methylPREDNISo lone (MEDROL DOSPACK) 4 mg Tablets, Dose Pack Take as directed on package 21 Each 05/06/2024 5:10 PM CDT 4 Active docusate sodium (COLACE) 100 mg capsule Take 1 Capsule (100 mg) by mouth 2 times daily. 30 Capsule 06/24/2024 4:25 PM CDT 4 Active oxyCODONE (ROXICODONE) 5 mg tablet TAKE 1 TABLETS EVERY 4-6 HOURS NEEDED FOR PAIN 40 Tablet 06/24/2024 4:25 PM CDT 4 Active rizatriptan (MAXALT) 10 mg Tablet TAKE 1 TABLET BY MOUTH AT ONSET OF MIGRAINE; IF NO RELIEF AFTER 2 HOURS, MAY REPEAT DOSE . MAX OF 3 TABLETS PER 24 HOURS. 10 Tablet 2 11/16/2024 5:15 PM MACHINE SHOP LEAD MAN 5 Active tirzepatide, weight loss, (Zepbound) 2.5 mg/0.5 mL Pen Injector Inject 2.5 mg (0.5 mL) subcutaneously weekly; for 4 weeks 2 mL 5 Active atogepant (Qulipta) 60 mg Tablet Take 1 Tablet (60 mg) by mouth daily. Due for appointment in June. 30 Tablet 3 06/27/2025 4:42 PM CDT 5 Active betamethasone valerate (VALISONE) 0.1 % Cream Apply to the affected area(s) daily as needed for allergic reaction 45 Gram 07/04/2025 4:47 PM CDT 5 Active atogepant (Qulipta) 60 mg Tablet Take 1 Tablet (60 mg) by mouth daily. 30 Tablet 8 5 Active rizatriptan (MAXALT) 10 mg Tablet TAKE 1 TABLET BY MOUTH AT ONSET OF MIGRAINE; IF NO RELIEF, MAY REPEAT 1 TABLET AFTER 2 HOURS. MAX 3 TABS IN 24 HOURS 10 Tablet 2 07/04/2025 4:47 PM CDT 5 Active nitrofurantoin (MACROBID) 100 mg capsule Take 1 capsule by mouth with meal/food every 12 hours for 3 days 6 Capsule 5 Active Encounters Date Type Department Care Team Description 07/18/2025 External Device Data [facility] ABSTRACTION Provider, Abstract from Last 3 Months Immunizations Immunization Administration Dates Next Due INFLUENZA VACCINE TRIVALENT SPLIT VIRUS, (6 MOS UP), 0.5ML (PF), IM 06/27/2025 Social History Tobacco Use Types Packs/Day Years Used Date Smoking Tobacco: Never Assessed Comments Unknown Sex and Gender Information Value Date Recorded Sex Assigned at Not on file Legal Sex Female 3:27 PM CDT Gender Identity Not on file Sexual Orientation Not on file Plan of Treatment Health Maintenance Due Date Last Done Comments DTAP/TDAP/TD VACCINES (1 - Tdap) 1990 HEPATITIS B VACCINES (1 of 3 - 19+ 3-dose series) 04/21 HPV/Cotest (21-29) 1992 CERVICAL CANCER SCREENING 2001 HPV/Cotest (30-65) 2001 PAP SMEAR 2001 BREAST CANCER SCREENING 2011 COLORECTAL SCREENING 2016 Colorectal Cancer Screening 2016 FIT-DNA Q 3 years 2016 FIT/FOBT Q 1 year 2016 Flex Sig/CT Colonography Q 5 years 2016 ZOSTER VACCINE (1 of 2) 2021 INFLUENZA VACCINE Completed 06/27/2025 Insurance [employer] Medicare Part B
--- OUTSIDE RECORDS SUMMARY | 2025-07-26 10:04 | XMS_ITS | Clinical Summary ---
Author Organization [facility] Address [address] [place] [address] Care Team Providers Care Voice Coach Name Role Phone Erik Ohara MD Primary Care Provider [phone] Allergies Active Allergy Reactions Criticality Noted Date Comments Shellfish Allergy Hives Medium 11/09/2016 Medications topiramate 50 MG Tab Take 1 tablet by mouth every evening. 10/11/2021 Active rizatriptan 10 MG tablet Take 10 mg by mouth as needed for Migraine. 09/30/2021 Active escitalopram 20 MG tablet Take 1 tablet by mouth every evening. 09/09/2021 Active calcium acetate 667 MG tablet Take 667 mg by mouth daily. Active magnesium oxide 400 (241.3 Mg) MG tablet Take 400 mg by mouth daily. Active Multiple Vitamins-Minera ls (MULTIVITAMIN ADULT) Chew Tab Chew 1 tablet by mouth daily. Active vitamin B-12 (CYANOCOBALAMIN ) 1000 mcg tablet Take 1,000 mcg by mouth daily. Active vitamin D3, cholecalciferol , 1000 UNIT Tab tablet Take 1 tablet by mouth daily. Active glucosamine-cho ndroitin 500-400 MG Cap Take 1 capsule by mouth daily. Active Active Problems Problem Noted Date Diagnosed Date S/P arthroscopy of right shoulder 11/21/2021 Adhesive capsulitis of right shoulder 11/05/2021 Family History Medical History Relation Comments Heart Disease Father Cancer Mother No Known Problems Sister 1 No Known Problems Sister 2 No Known Problems Son 1 No Known Problems Son 2 Relation Status Comments Father Mother ALL/ lung CA Sister 1 Alive Sister 2 Alive Son 1 Alive Son 2 Alive Social History Tobacco Use Types Packs/Day Years Used Date Smoking Tobacco: Never Smokeless Tobacco: Never Tobacco Cessation:Counseling Given: No Comments:Never Smoked Alcohol Use Standard Drinks/Week Comments Yes 0 (1 standard drink = 0.6 oz pur e alcohol) Social PHQ-2 Answer Date Recorded PHQ-2 Score - If the patient scores above 3, please move on to questions 3-9 0 11/05/2021 Comments No Sex and Gender Information Value Date Recorded Sex Assigned at Not on file Legal Sex Female 1:41 PM ANIMAL CRUELTY INVESTIGATOR Gender Identity Female 11/19/2021 3:19 PM ANIMAL CRUELTY INVESTIGATOR Sexual Orientation Straight 11/19/2021 3: 19 PM ANIMAL CRUELTY INVESTIGATOR Last Filed Vital Signs Vital Sign Reading Time Taken Comments Blood Pressure 139/85 01/09/2022 4:26 PM CDT Pulse 100 01/09/2022 4:26 PM CDT Temperature 36.6 C (97.9 F) 12/12/2021 4:18 PM CDT Respiratory Rate 18 12/12/2021 4:18 PM CDT Oxygen Saturation 100% 12/12/2021 4:18 PM CDT Inhaled Oxygen Concentration - - Weight 79.4 kg (175 lb) 01/09/2022 4:26 PM CDT Height 167.6 cm (5' 6) 01/09/2022 4:26 PM CDT Body Mass Index 28.25 01/09/2022 4:26 PM CDT Plan of Treatment Health Maintenance Due Date Last Done Comments Cervical Cancer Screening Pa p Smear (Age 30 to 64) Every 3 Years 1971 Colorectal Cancer Screening Colonoscopy (10 Years) 1971 Annual Physical 1974 Hepatitis C 1989 DTaP, Tdap and Td Vaccines ( 1 - Tdap) 1990 Hepatitis B Vaccines (1 of 3 - 19+ 3-dose series) 1990 Cervical Cancer Screening Pa p with HPV Testing (Age 30 to 64) Every 5 Years 2001 Cervical Cancer Screening wi th HPV 2001 Mammogram Screening 2011 Pneumococcal Vaccine: 50+ Years (1 of 1 - PCV) 2021 06/21/2018 Zoster Vaccines (1 of 2) 2021 COVID-19 Vaccine (2024-2 6 season) 2025 07/25/2021, 11/02/2020, 10/10/2020 Influenza Adult (#1) 2025 Hepatitis A Vaccines Aged Out No long er eligible based on patient's age to complete this topic Meningococcal B Vaccine Aged Out No l onger eligible based on patient's age to complete this topic Meningococcal Vaccine Aged Out No anabel vonda eligible based on patient's age to complete this topic RSV Immunizations Under 20 Months Aged Out No longer eligible b ased on patient's age to complete this topic Insurance [facility] [place] [address] Care Teams Voice Coach Relationship Specialty Start Date End Date Erik Ohara MD [address] [place] [address] PCP - General FAMILY PRACTICE 11/05/21
[2025-07-26 13:49] LABS: Add Urine Microscopic? NO; Appearance Urine Clear (Clear); Glucose Urine UA Negative (Negative); Leukocyte Esterase Ur Negative LEU/UL (Negative); Nitrate Urine Negative (Negative); Specific Grav Ur 1.011 (1.001-1.035)
== END 2025-07-26 09:23 | disposition home or self-care (01) ==
LOC: ANHGOSHLAB 09:22
PROVIDERS: PCP Clinical Nurse Specialist; Visit Provider Nurse Practitioner
DX: R35.0 Frequency of micturition (principal)
CPT/HCPCS: 81003

== ENCOUNTER 2025-09-13 07:07 | Outpatient (CLI) | payer OTHER, SELFPAY ==
--- NOTE | ~2025-09-13 | MM_ITS ---
EXAMINATION: MM screening michele BI w alayna HISTORY: Screening. TECHNIQUE: Craniocaudal and mediolateral oblique 3-D tomosynthesis images were obtained and synthetic 2-D images were generated. CAD analysis was submitted and interpreted. COMPARISON: Studies dating back to 2019 BREAST PARENCHYMAL COMPOSITION: Not Dense: There are scattered areas of fibroglandular tissue. FINDINGS: There is no asymmetries/asymmetries seen laterally on the left in the mid depth. There are no suspicious calcifications. No unexplained architectural distortion is seen. There are no skin or nipple abnormalities identified. There is no adenopathy seen on the images submitted. IMPRESSION: Questionable appearance on the left for which additional imaging is recommended. BI-RADS 0 - Incomplete - needs additional imaging evaluation Reviewed, dictated and finalized at location A. TER'S HELPER IMPRESSION: Questionable appearance on the left for which additional imaging is recommended . BI-RADS 0 - Incomplete - needs additional imaging evaluation
== END 2025-09-13 07:08 | disposition home or self-care (01) ==
LOC: ANHFOHIMG 07:09
PROVIDERS: PCP Internal Medicine; Visit Provider Internal Medicine
DX: Z12.31 Encounter for screening mammogram for malignant neoplasm of breast (principal); R92.8 Other abnormal and inconclusive findings on diagnostic imaging of breast
CPT/HCPCS: 77063; 77067